=== PATIENT | female | born 1995 | race Two or more races ===

== ENCOUNTER 2024-01-17 08:00 | Outpatient (RCR) | payer MEDICAID, SELFPAY ==
--- NOTE | 2023-12-25 14:23 | PT.ODAYNRPT ---
PT Outpatient Daily Note OP Daily Note Outpatient Physical Therapy Treatment Date: 12/25/23 Visit Reasons: RIGHT ANKLE PAIN Subjective: Pt reports R ankle is doing better but wears ankle support most of the time. Objective: Please see flow sheet for ther ex list. Assessment: Pt tolerated intervention with no pain, minimal muscle fatigue. Plan: Continue with POC. Length of Time (minutes) of Treatment: 30 Minutes Procedure Charges Therapeutic Exercise 30 minutes: Yes
--- NOTE | 2023-12-29 10:29 | PT.ODAYNRPT ---
PT Outpatient Daily Note OP Daily Note Outpatient Physical Therapy Treatment Date: 12/29/23 Visit Reasons: RIGHT ANKLE PAIN Subjective: Pt's ankle pain is better. Pt notice increase ROM with less pain Objective: Please see flow chart for list of th er ex performed Assessment: progressing with closed chain exercises with less pain. Pt demonstrate increase ankle AROM in all plane with less reported pain Plan: Continue with PT Length of Time (minutes) of Treatment: 30 Minutes Procedure Charges Therapeutic Exercise 30 minutes: Yes
--- NOTE | 2024-01-02 09:38 | PT.ODAYNRPT ---
PT Outpatient Daily Note OP Daily Note Outpatient Physical Therapy Treatment Date: 01/02/24 Visit Reasons: RIGHT ANKLE PAIN Subjective: Pt reports R ankle is doing better since starting PT. Objective: Please see flow sheet for ther ex list. Assessment: Pt able to complete interventions with decrease pain during step up exercise indicating progress. Plan: Continue with pOC. Length of Time (minutes) of Treatment: 30 Minutes Procedure Charges Therapeutic Exercise 30 minutes: Yes
--- NOTE | 2024-01-04 09:56 | PT.ODAYNRPT ---
PT Outpatient Daily Note OP Daily Note Outpatient Physical Therapy Treatment Date: 01/04/24 Visit Reasons: RIGHT ANKLE PAIN Subjective: Pt reports ankle is doing better. Objective: Please see flow sheet for ther ex list. Assessment: Pt presents in clinic with decrease c/o pain allowing for progression of interventions. Plan: Continue with POC. Length of Time (minutes) of Treatment: 30 Minutes Procedure Charges Therapeutic Exercise 30 minutes: Yes
--- NOTE | 2024-01-09 10:03 | PT.ODAYNRPT ---
PT Outpatient Daily Note OP Daily Note Outpatient Physical Therapy Treatment Date: 01/09/24 Visit Reasons: RIGHT ANKLE PAIN Subjective: Pt's ankle is better and walking more with less pain noted. Objective: Please see flow chart for list of ther ex performed Assessment: progressing with closed chain exercises with less pain reported Plan: Continue with PT Length of Time (minutes) of Treatment: 30 Minutes Procedure Charges Therapeutic Exercise 30 minutes: Yes
--- NOTE | 2024-01-11 10:58 | PT.ODAYNRPT ---
PT Outpatient Daily Note OP Daily Note Outpatient Physical Therapy Treatment Date: 01/11/24 Visit Reasons: RIGHT ANKLE PAIN Subjective: Pt's ankle better and walking is less painful now. Objective: Please see flow chart for list of ther ex performed Assessment: cues to decrease downward gaze with tandem walking and lateral stepping on the airex foam to challenge ankle proprioception. Decrease antalgic gait noted pre PT session indicating patient ability to WB now. Plan: Continue with PT Length of Time (minutes) of Treatment: 30 Minutes Procedure Charges Therapeutic Exercise 30 minutes: Yes
--- NOTE | 2024-01-17 11:58 | PT.ODAYNRPT ---
PT Outpatient Daily Note OP Daily Note Outpatient Physical Therapy Treatment Date: 01/17/24 Visit Reasons: RIGHT ANKLE PAIN Subjective: Pt's ankle is better. Pt notice slight stiffness due to the cold. Objective: Please see flow chart for list of ther ex performed Assessment: less antalgic gait and demonstrate improved ankle stability with SLB Plan: Continue with PT Length of Time (minutes) of Treatment: 30 Minutes Procedure Charges Therapeutic Exercise 30 minutes: Yes
== END 2024-01-20 23:59 | disposition home or self-care (01) ==
LOC: CPTX 08:00
PROVIDERS: PCP Student in an Organized Health Care Education/Training Program; Referring Provider Student in an Organized Health Care Education/Training Program; Visit Provider Otolaryngology
DX: M25.571 Pain in right ankle and joints of right foot (principal); R26.2 Difficulty in walking, not elsewhere classified; R26.89 Other abnormalities of gait and mobility; S82.61XD Displaced fracture of lateral malleolus of right fibula, subsequent encounter for closed fracture with routine healing; X58.XXXD Exposure to other specified factors, subsequent encounter
CPT/HCPCS: 97110

== ENCOUNTER → 2024-01-30 | Outpatient (CLI) | payer MEDICAID, SELFPAY ==
--- NOTE | 2024-01-30 09:12 | XR_ITS ---
EXAMINATION: Ankle, right 3 views . Technique: Ankle AP, oblique, lateral 3 views Date and time of exam: January 30, 2024 1012 hours INDICATIONS: History acute ankle fracture 6 months ago FINDINGS: Healed fracture distal fibular shaft Moderate osteopenia No ankle dislocation IMPRESSION: Healed fracture distal fibular shaft with satisfactory alignment
== END | disposition home or self-care (01) ==
PROVIDERS: PCP Physician Assistant; Referring Provider Student in an Organized Health Care Education/Training Program; Visit Provider Student in an Organized Health Care Education/Training Program
DX: Z87.81 Personal history of (healed) traumatic fracture (principal)
CPT/HCPCS: 73610

== ENCOUNTER 2024-02-05 08:00 | Outpatient (RCR) | payer MEDICAID, SELFPAY ==
--- NOTE | 2024-01-22 10:19 | PT.ODAYNRPT ---
PT Outpatient Daily Note OP Daily Note Outpatient Physical Therapy Treatment Date: 01/22/24 Visit Reasons: Right ankle pain Subjective: Pt's ankle feels better but still notice some pain/stiffness around the fracture site. Objective: Please see flow chart for list of ther ex perfromed Assessment: progressing with closed chain exercises and added more static balance; slight difficulty with SLB with foam due to ankle instability Plan: Continue with PT Length of Time (minutes) of Treatment: 30 Minutes Procedure Charges Therapeutic Exercise 30 minutes: Yes
--- NOTE | 2024-01-25 08:24 | PT.ODAYNRPT ---
PT Outpatient Daily Note OP Daily Note Outpatient Physical Therapy Treatment Date: 01/25/24 Visit Reasons: Right ankle pain Subjective: Pt's ankle is stiff but better. No other concerns reported Objective: Please see flow chart for list of ther ex performed Assessment: improving with static SLS balance with foam with less cues to keep foot planted Plan: Continue with PT Length of Time (minutes) of Treatment: 30 Minutes Procedure Charges Therapeutic Exercise 30 minutes: Yes
--- NOTE | 2024-01-31 08:32 | PTNOTE_ITS ---
PT OP Progress/Discharge Note Date of Service: 01/31/24 Progress Note/DC Note Progress Note/Discharge Note: Progress Note Patient Information Visit Reasons: Right ankle pain Medical Diagnosis: Right Lateral Malleolus Fracture Treatment Dx #1: Right Ankle Pain Treatment Dx #2: Right Ankle Weakness Service Continue Service or Discharge: Continue Service Certification Date Certification Dates: 01/31/24 to 04/30/24 Status Subjective: Pt's ankle still has ache especially when it's cold. 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 Pt has been able to stand, walk, perform chores, and ADLs with less limitation. Pt still has difficulty with uneven surfaces, balance, and performing recreational activities. Objective: Right Ankle AROM DF: 20 deg PF: 35 dg Inversion: 20 deg Eversion: 15 deg Right Ankle MMTs: grossly 3+/5 Right Hip MMTs: grossly 3+/5 SLS: 5 sec Assessment: Pt demonstrate improvement with ankle mobility and strength allowing her to start light ADLs, ambulate, and perform chores with less limitation. Pt still exhibit balance deficits and will continue to benefit from physical therapy to improve stability and work on proprioception; thank you for your referrals. Plan: Continue with PT/POC and add 8 sessions (2 x wk for 4 wks) Procedure Charges Therapeutic Exercise 30 minutes: Yes
--- NOTE | 2024-02-05 08:30 | PT.ODAYNRPT ---
PT Outpatient Daily Note OP Daily Note Outpatient Physical Therapy Treatment Date: 02/05/24 Visit Reasons: Right ankle pain Subjective: Pt's ankle is better. Pt walking more with less limping lately. Pt will like to continue physical therapy. Objective: Please see flow chart for list of ther ex performed Assessment: continues to improve with dynamic balance. Progress patient to more dynamic balance; Pt still exhibit right gastroc weakness unable to perform SL calf raise through full ROM Plan: Continue with PT Length of Time (minutes) of Treatment: 30 Minutes Procedure Charges Therapeutic Exercise 30 minutes: Yes
== END 2024-02-20 23:59 | disposition home or self-care (01) ==
LOC: CPTX 08:00
PROVIDERS: PCP Student in an Organized Health Care Education/Training Program; Referring Provider Student in an Organized Health Care Education/Training Program; Visit Provider Student in an Organized Health Care Education/Training Program
DX: M25.571 Pain in right ankle and joints of right foot (principal); S82.831D Other fracture of upper and lower end of right fibula, subsequent encounter for closed fracture with routine healing; X58.XXXD Exposure to other specified factors, subsequent encounter
CPT/HCPCS: 97110